=== PATIENT | female | born 1965 | race Caucasian/White ===

== ENCOUNTER 2018-02-14 07:42 | Day surgery (SDC) | payer OTHER ==
[~2018-02-14] VITALS: Ht 165.1 cm; Wt 79.0 kg
[~2018-02-14 07:42] MED LIST: CIPR500 PO; CYCL10 PO; HYDACE5 PO; NAPR500 PO; PHENA100 PO
[2018-02-14] MEDS ORDERED: ESTR2 (08:23)
== END 2018-02-14 10:02 | disposition home or self-care (01) ==
LOC: ORSCSDS 07:42
PROVIDERS: Internal Medicine Gastroenterology
PROC: 0DBM8ZX Excision of Descending Colon, Via Natural or Artificial Opening Endoscopic, Diagnostic (ICD-10-PCS; principal; 2018-02-14 09:00)
DX: Z12.11 Encounter for screening for malignant neoplasm of colon (principal); D12.4 Benign neoplasm of descending colon; K57.30 Diverticulosis of large intestine without perforation or abscess without bleeding; E78.00 Pure hypercholesterolemia, unspecified; Z79.899 Other long term (current) drug therapy
CPT/HCPCS: 88305; J0330; J1980; J2405